=== PATIENT | female | born 1990 | race Hispanic/Latino ===

== ENCOUNTER 2019-02-26 14:28 | Outpatient (CLI) | payer BC ==
--- NOTE | 2019-02-26 14:54 | ULT ---
FThyroid ultrasound: 02/26/2019 COMPARISON: None HISTORY: Evaluate for thyroid nodule, thyromegaly on physical examination TECHNIQUE: Multiplanar grayscale sonographic imaging of the thyroid gland obtained. FINDINGS: Right lobe measures 4.2 x 1.6 x 1.6 cm and left lobe measures 4.7 x 1.5 x 1.5 cm. Thyroid isthmus measures 3 mm in AP dimension. No nodule is identified within the thyroid gland. IMPRESSION: Unremarkable thyroid ultrasound.
== END 2019-02-26 14:29 | disposition home or self-care (01) ==
LOC: BICULT 14:28
PROVIDERS: ATTEND Internal Medicine Endocrinology, Diabetes & Metabolism
DX: E04.9 Nontoxic goiter, unspecified (principal)
CPT/HCPCS: 36415; 76536; 84439; 84443; 86376; 86800